=== PATIENT | female | born 1955 ===

== ENCOUNTER 2016-07-23 10:07 | Outpatient (CLI) | payer OTHER ==
[2016-07-23 11:26] LABS: Blood Urea Nitrogen 21 mg/dL (7-17)
[2016-07-23] MEDS ORDERED: NACL ONE (12:47)
--- NOTE | 2016-07-23 13:46 | Cat Scan Report ---
CT SCAN OF THE ABDOMEN AND PELVIS WITH CONTRAST: HISTORY: Abdominal pain, difficulty urinating. TECHNIQUE: Helical CT in 1.25mm intervals following IV contrast. Sagittal and coronal reconstructions. FINDINGS: Compared to 01/13/[address] abdomen and pelvis. The liver is normal in size and is without focal defect. No gallstones or biliary dilatation are noted. The spleen and pancreas demonstrate a normal size and attenuation with no evidence of abnormal mass. The kidneys are normal in size and position with no evidence of hydronephrosis or mass. The adrenal glands are normal. There are scattered diverticula in the sigmoid colon. No acute inflammatory changes. The remaining bowel loops are unremarkable. The appendix is not confidently identified, correlate with surgical history. The abdominal aorta is normal. The uterus is moderately enlarged with evidence of multiple small and large uterine fibroids. The adnexa are unremarkable. There is no evidence of peritoneal air or fluid. There is no evidence of any abnormal masses or fluid collections within the pelvis. No adenopathy is identified. The bladder is normal. IMPRESSION: No acute inflammatory process. Uterine fibroid disease. Sigmoid diverticulosis.
== END 2016-07-23 10:08 | disposition home or self-care (01) ==
LOC: CT 10:07
PROVIDERS: ATTEND Internal Medicine
DX: D25.9 Leiomyoma of uterus, unspecified (principal); N85.2 Hypertrophy of uterus; K57.30 Diverticulosis of large intestine without perforation or abscess without bleeding
CPT/HCPCS: 36415; 74177; 82565; 84520; Q9967